=== PATIENT | male | born 1995 | race Caucasian/White ===

== ENCOUNTER 2023-10-30 11:27 | Emergency (ER) | payer OTHER ==
[~2023-10-30] VITALS: Ht 180.3 cm; Wt 102.1 kg
== END 2023-10-30 14:58 | disposition home or self-care (01) ==
LOC: ER 11:27
DX: S61.012A Laceration without foreign body of left thumb without damage to nail, initial encounter (principal); W26.0XXA Contact with knife, initial encounter
CPT/HCPCS: 12002; 99282-25